=== PATIENT | male | born 1950 | race American Indian/Alaskan Native ===

== ENCOUNTER 2019-05-22 19:11 | Emergency (ER) | payer MEDICARE ==
--- NOTE | 2019-05-22 21:10 | Event Note ---
ED Screening Note Date of service: 05/22/19 Time: 21:07 ED Screening Note: 69 yo male on blood thinner was sent to Ed for hematuria He denies dysuria but states not urinating often admits right sided abdopelv mark n This initial assessment/diagnostic orders/clinical plan/treatment(s) is/are sub ject to change based on patients health status, clinical progression and re- assessment by fellow clinical providers in the ED. Further treatment and workup at subsequent clinical providers discretion. Patient/guardian urged not to elope from the ED as their condition may be serious if not clinically assessed and managed. Initial orders include: ua, CT abd pelv main side
[2019-05-22 21:34] LABS: Hemoglobin 13.2 gm/dl (11.8-15.2); Mean Corpuscular HGB Conc 33 % (32-34); Mean Corpuscular Volume 87 fl (84-94); Platelet Count 189 K/mm3 (140-440); Red Blood Count 4.63 M/mm3 (3.65-5.03); Red Cell Distribution Width 15.3 % (13.2-15.2)
[2019-05-22 21:46] LABS: Partial Thromboplastin Time 59.9 Sec. (24.2-36.6)
[2019-05-22 21:49] LABS: BUN/Creatinine Ratio 18; Blood Urea Nitrogen 14 mg/dL (9-20); Calcium 9.3 mg/dL (8.4-10.2); Hemolysis Index 10
[2019-05-22 21:52] LABS: Bilirubin,Urine NEG (Negative); Blood,Urine LG (Negative); Color,Urine Yellow (Yellow); RBC,Urine > 182.0 /HPF (0.0-6.0)
[2019-05-22 21:56] LABS: INR 6.04 (0.87-1.13)
[2019-05-22 22:19] LABS: Basophils % (Manual) 0 % (0.0-1.8); Total Cells Counted 100
[2019-05-22 22:20] LABS: Anisocytosis 1+
--- NOTE | 2019-05-22 22:41 | Cat Scan Report ---
CT of the abdomen and pelvis without contrast INDICATION: Hematuria COMPARISON: None FINDINGS: There has been apparent aortic valve replacement. There is minimal basilar atelectasis with small left lower lobe nodule. The liver, spleen, and left adrenal gland appear normal. 1 cm right ad renal nodule is likely a nonfunctioning adenoma. There is also an 8 mm low density in the tail the pa ncreas which is nonspecific as well. There are no calculi seen in either kidney. No hydronephrosis or perinephric edema. No gross renal masses. No definite gallbladder or biliary tree abnormality. No fl uid or adenopathy in the upper abdomen. There is moderate vascular calcification without aneurysm. CT of the pelvis shows a normal appendix. No diverticulosis or diverticulitis. Prostate is moderately enlarged. Large inguinal hernia contains small bowel but no obstruction. There is a smaller left ing uinal hernia containing colon but again no obstruction. There is moderate stool in the colon and rect um. No pelvic or inguinal adenopathy. No ureteral stones are seen. No stone fragments seen in the mahnaz dder. IMPRESSION: Incidental findings as described but no kidney stones or ureteral obstruction seen. Automated exposure control was utilized to diminish radiation dose. Signer Name: Cesar Ledezma MD Signed: 05/22/2019 10:37 PM Workstation Name: [id number]
[2019-05-23] MEDS ORDERED: PHYTONADIONE 5 MG/0.5 ML *ORAL LIQUID PO ONE (02:42)
--- NOTE | 2019-05-23 02:45 | Emergency Department Report ---
HPI - General Chief Complaint: Urogenital-Male Time Seen by Provider: 05/23/19 02:26 - HPI HPI: 69-year-old -[place] male presents to the emergency department from the office of his primary care physician (Nigel Moulton NP) after he was found to hav e some blood in the urine and an elevated INR level. The patient was seeing her for the second time and has been recently establishing care after moving to the area. He takes warfarin secondary to a previous aortic valve replacement. He also has a past medical history of CVA without residual deficits, [id number] diabetes and hypertension. He was having a urinalysis done as part of a physical when the hematuria was seen in the patient denies any gross blood seen or any dysuria. ED Past Medical Hx - Past Medical History Hx Hypertension: Yes Hx CVA: Yes Hx Diabetes: Yes - Surgical History Additional Surgical History: aorta valve replacement - Social History Smoking Status: Never Smoker Substance Use Type: None ED Review of Systems ROS: Stated complaint: BLOOD IN URINE Other details as noted in HPI Comment: All other systems reviewed and negative Constitutional: denies: chills, fever Eyes: denies: eye pain, vision change ENT: denies: ear pain, throat pain Respiratory: denies: cough, shortness of breath Cardiovascular: denies: chest pain, palpitations Gastrointestinal: denies: abdominal pain, vomiting Genitourinary: hematuria. denies: dysuria Musculoskeletal: denies: back pain, arthralgia Skin: denies: rash, lesions Neurological: denies: headache, weakness Physical Exam - Physical Exam Vital Signs: Vital Signs 05/22/19 21:09 Temperature 98.7 F Pulse Rate 67 Respiratory 18 Rate Blood Pressure 157/79 O2 Sat by Pulse 100 Oximetry Physical Exam: GENERAL: The patient is well-developed well-nourished. HENT: Normocephalic. Atraumatic. Patient has moist mucous membranes. EYES: Extraocular motions are intact. NECK: Supple. Trachea is midline. CHEST/LUNGS: Clear to auscultation. There is no respiratory distress noted. HEART/CARDIOVASCULAR: Regular. There is no tachycardia. There is no murmur. ABDOMEN: Abdomen is soft, nontender. Patient has normal bowel sounds. SKIN: Skin is warm and dry. NEURO: The patient is awake, alert, and oriented. The patient is cooperative. The patient has no focal neurologic deficits. Normal speech. MUSCULOSKELETAL: There is no tenderness or deformity. There is no evidence of acute injury. ED Course Vital Signs 05/22/19 21:09 Temperature 98.7 F Pulse Rate 67 Respiratory 18 Rate Blood Pressure 157/79 O2 Sat by Pulse 100 Oximetry ED Medical Decision Making - Lab Data Result diagrams: 05/22/19 21:10 05/22/19 21:13 - Radiology Data Radiology results: report reviewed CT of the abdomen and pelvis without contrast INDICATION: Hematuria COMPARISON: None FINDINGS: There has been apparent aortic valve replacement. There is minimal basilar atelectasis with small left lower lobe nodule. The liver, spleen, and left adrenal gland appear normal. 1 cm right adrenal nodule is likely a nonfunctioning adenoma. There is also an 8 mm low density in the tail the pancreas which is nonspecific as well. There are no calculi seen in either kidney. No hydronephrosis or perinephric edema. No gross renal masses. No definite gallbladder or biliary tree abnormality. No fluid or adenopathy in the upper abdomen. There is moderate vascular calcification without aneurysm. CT of the pelvis shows a normal appendix. No diverticulosis or diverticulitis. Prostate is moderately enlarged. Large inguinal hernia contains small bowel but no obstruction. There is a smaller left inguinal hernia containing colon but again no obstruction. There is moderate stool in the colon and rectum. No pelvic or inguinal adenopathy. No ureteral stones are seen. No stone fragments seen in the bladder. IMPRESSION: Incidental findings as described but no kidney stones or ureteral obstruction seen. - Medical Decision Making This patient presents to the emergency department from his primary care physician's office secondary to some microscopic hematuria found during a physical examination. Apparently he also had his INR checked at that time and it was elevated but he is unaware of what number it was. The patient was seen on the fast track side at [facility] and had blood work and a CT scan completed. The labs are mostly unremarkable except for hematuria found on the urinalysis and the patient has an INR level of 6.04. The patient does take warfarin for his history of aortic valve replacement. There has been no gross bleeding seen. CT scan of the abdomen and pelvis was done that does not show any source of the hematuria including any nephrolithiasis or obvious malignancy. There are some incidental findings of nonobstructed inguinal hernia. The patient was given a dose of oral vitamin K for the supratherapeutic INR and he will hold off on his next dose of warfarin. From there, the patient will be contacting his primary care physician on how to proceed with anticoagulation. He will also be given a referral for urology to follow-up regarding the hematuria. His vital signs have been stable throughout his ED course. He will return to the emergency department with any worsening of his symptoms or any acute distress. - Differential Diagnosis UTI, malignancy, nephrolithiasis Critical Care Time: No Critical care attestation.: If time is entered above; I have spent that time in minutes in the direct care of this critically ill patient, excluding procedure time. ED Disposition Clinical Impression: Supratherapeutic INR Hematuria Qualifiers: Hematuria type: unspecified type Qualified Code(s): R31.9 - Hematuria, unspecified Hypertension Qualifiers: Hypertension type: essential hypertension Qualified Code(s): I10 - Essential (primary) hypertension Disposition: TO HOME OR SELFCARE Is pt being admited?: No Condition: Stable Instructions: Acute Hematuria (ED), Hypertension (ED), Elevated INR (ED) Additional Instructions: Please skip your dose of warfarin on . Contact your primary care provider on how to proceed with your Coumadin. I have given you a referral for a local urologist, Dr. Butts, to follow-up regarding the blood seen in the urine. Return to the emergency department with any worsening of your symptoms or any acute distress. Referrals: NIGEL MOULTON [Other] - 3-5 Days BRIAN BUTTS MD [Staff Physician] - 3-5 Days Time of Disposition: 03:50
[2019-05-23 04:07] VITALS: BP 165/90
== END 2019-05-23 03:55 | disposition home or self-care (01) ==
LOC: ED 19:11
DX: R31.9 Hematuria, unspecified (principal); R79.1 Abnormal coagulation profile; I10 Essential (primary) hypertension; E11.9 Type 2 diabetes mellitus without complications; Z86.73 Personal history of transient ischemic attack (TIA), and cerebral infarction without residual deficits; Z98.890 Other specified postprocedural states
CPT/HCPCS: 36415; 74176; 80048; 81001; 85007; 85025; 85610; 85730; J3430